=== PATIENT | female | born 1965 | race Caucasian/White ===

== ENCOUNTER 2022-12-23 13:50 | Outpatient (REF) | payer MEDICARE, MEDICAID, SELFPAY ==
--- NOTE | ~2022-12-23 | XR_ITS ---
EXAMINATION: XR LUMBOSACRAL SPINE WITH OBLIQUES CLINICAL INFORMATION: Back pain. COMPARISON: None available. TECHNIQUE: 4 views lumbar spine. FINDINGS: There is normal lumbar lordosis. There is disc prosthesis at the L4-L5 disc level stabilized with bilateral pedicular screws and interconnecting rods for posterior stability. Mild loss of L3-L4 disc level is noted. On flexion and extension views there is no subluxation seen at the fused or other disc levels. No visible acute fracture, dislocation or lytic process seen. SI joints are symmetrical and normal. XR/XR lumbar spine 4V min IMPRESSION: 1. L4-L5 disc fusion with hardware for stability. 2. Mild degenerative disc changes L3-L4 disc level. No visible acute fracture, dislocation or lytic process seen.
== END 2022-12-23 13:51 | disposition home or self-care (01) ==
LOC: HO.HOSX 13:50
PROVIDERS: Visit Provider Physician Assistant
DX: M54.9 Dorsalgia, unspecified (principal)
CPT/HCPCS: 72110; 99212

== ENCOUNTER 2024-07-05 11:37 | Outpatient (REF) | payer MEDICARE, MEDICAID, SELFPAY | END 2024-07-05 11:38 | disposition home or self-care (01) | LOC: HO.HOSX 11:37 | PROVIDERS: Visit Provider Physician Assistant | DX: Z13.89 Encounter for screening for other disorder (principal) ==